=== PATIENT | female | born 1985 | race Caucasian/White ===

== ENCOUNTER 2018-09-27 17:54 | Emergency (ER) | payer BC ==
[~2018-09-27] VITALS: Ht 157.5 cm; Wt 54.4 kg
--- NOTE | 2018-09-27 18:59 | NUR ---
FAWN PAULINO AT BEDSIDE FOR MSE.
[2018-09-27] MEDS ORDERED: FLUORESCEIN SODIUM 1 MG STRIP OP ONE (19:00)
[2018-09-27] MEDS ORDERED: TETRACAINE HCL 0.5% OPHT DROP 2 ML BOTTLE OP ONE (19:00)
[2018-09-27] MEDS ORDERED: TETRACAINE HCL 0.5% OPHT DROP 2 ML BOTTLE ONE (19:02)
[2018-09-27] MEDS ORDERED: FLUORESCEIN SODIUM 1 MG STRIP ONE (19:02)
--- NOTE | 2018-09-27 19:31 | NUR ---
pt ambulated out of ER in stable gait w family member who will drive pt home. pt appears in no apparent distress. Patient discharged to home in stable conditon. Written and verbal after care instructions given. Patient verbalizes understanding of instructions.
[2018-09-27 19:33] VITALS: BP 128/68
== END 2018-09-27 19:33 | disposition home or self-care (01) ==
LOC: ER 17:54
DX: S05.02XA Injury of conjunctiva and corneal abrasion without foreign body, left eye, initial encounter (principal); Z88.0 Allergy status to penicillin; X58.XXXA Exposure to other specified factors, initial encounter; Y93.89 Activity, other specified; Y92.89 Other specified places as the place of occurrence of the external cause; Y99.8 Other external cause status
CPT/HCPCS: A4663

== ENCOUNTER 2021-01-28 09:15 | Emergency (ER) | payer OTHER ==
[~2021-01-28] VITALS: Ht 160 cm; Wt 54.4 kg
--- NOTE | 2021-01-28 09:25 | NUR ---
Pt w/in from home, c/o palpitations and chest pressure on L upper chest radiating to arms started about 10 hours ago. Palpitations has stopped but chest pressure remained. AO x 4, not in acute distress, placed on monitor and EKG done at this time.
--- NOTE | 2021-01-28 09:30 | NUR ---
Dr Segundo at bedside for MSE
--- NOTE | 2021-01-28 09:42 | NUR ---
All orders carried out. Chest measurement technician at bedside. Specimens sent to lab. Patient resting no sigsn of distress.
[2021-01-28 09:55] LABS: HEMATOCRIT 34.2 % (31.2-41.9); MEAN CORPUSCULAR HEMOGLOBIN 31.5 uug (24.7-32.8); MEAN CORPUSCULAR VOLUME 89.1 fL (75.5-95.3); PLATELET COUNT (AUTO) 299 K/uL (179-408)
[2021-01-28 10:26] LABS: CREATININE 0.8 mg/dL (0.6-1.3); POTASSIUM 3.8 mmol/L (3.5-5.1)
--- NOTE | 2021-01-28 10:50 | NUR ---
MD Cleared patient for DC. IV removed. Catheter intact and site benign. Pressure and 4x4 gauze applied to site. No bleeding noted. Patient discharged to home in stable condition. Written and verbal after care instructions given. Patient verbalizes understanding of instructions. Stressed follow up or return to ER for worsening s/s. Ambulated out of ED in steady gait.
[2021-01-28 11:47] VITALS: BP 104/62
== END 2021-01-28 10:50 | disposition home or self-care (01) ==
LOC: ER 09:15
DX: R00.2 Palpitations (principal); R07.9 Chest pain, unspecified; Z88.0 Allergy status to penicillin
CPT/HCPCS: 36415; 70030-TC; 71045; 84443; 85025; 93005; A4663